=== PATIENT | male | born 1955 | race Caucasian/White ===

== ENCOUNTER 2016-10-19 02:23 | Emergency (ER) | payer OTHER ==
[2016-10-19 02:38] VITALS: BP 155/90; TEMP 97.4; BMI 30.4
--- NOTE | 2016-10-19 02:49 | ED.PDOC ---
General ED Provider: Dr. YOSSI BUTCHER Chief Complaint: Back Pain Stated Complaint: patient is a 60 year old male who has a history of chronic back pain followed by the [facility] in [facility]. States he is out of his medications ( oxyodone) for the past 2 days. States the pain is worse tonight and has not been gotten relief with tylenol or benadryl. Describes it as a sharp pain and unable to get comfortable standing, sitting, or lying. Denies injury. Time Seen by Physician: 02:46 Mode of Arrival: Walk-In Information Source: Patient Exam Limitations: No limitations Primary Care Provider: DESHAWN GARZA Nursing and Triage Documentation Reviewed and Agree: Yes Musculoskeletal Complaint Exam - Back Pain Complaint/Exam Mechanism of Injury: Reports: No known trauma Onset/Duration: chronic Symptoms Are: Still present Timing: Constant Initial Severity: Moderate Current Severity: Severe Location: Reports: Diffuse Character: Reports: Aching, Throbbing, Spasmodic Aggravating: Reports: None Alleviating: Reports: None Associated Signs and Symptoms: Denies: Swelling, Redness, Bruising, Fever, Weakness, Numbness, Tingling, Abdominal pain, Flank pain, Bladder incontinence, Bowel incontinence, Weight loss, Pain with weight bearing TAD Risk Factors: Reports: None AAA Risk Factors: Reports: None Cauda Equina Risk Factors: Reports: None Epidural Abcess Risk Factors: Denies: IV drug use, Skin abcess, Lower extremity numbness, Lower extremity weakness Related Surgical History: Reports: None Focal Tenderness: Yes (Lower back ) Paraspinal Muscle Tenderness: No Paraspinal Muscle Spasm: No Scoliosis: No Lordosis: No Kyphosis: No SLR Test: Right Negative, Left Negative Hip Motion Testing Pain: Right Negative, Left Negative Focal Weakness: Present: None Focal Sensory Loss: Present: None Gait: Present: Normal Back Picture: 1 - tenderness Differential Diagnoses: Strain, Sprain Review of Systems - Review Of Systems Constitutional: Reports: No symptoms Eyes: Reports: No symptoms Ears, Nose, Mouth, Throat: Reports: No symptoms Respiratory: Reports: No symptoms Cardiac: Reports: No symptoms GI: Reports: No symptoms Musculoskeletal: Reports: Back pain, Joint pain Neurological: Reports: Anxiety All Other Systems: Reviewed and Negative Past Medical History - Past Medical History Endocrine: Reports: Dyslipidemia Cardiovascular: Reports: Hypertension, CHF Respiratory: Reports: COPD Hematological: Reports: None Gastrointestinal: Reports: None Genitourinary: Reports: None Neuro/Psych: Reports: None Musculoskeletal: Reports: Arthritis, Back Pain Cancer: Reports: None Other Pertinent Past Medical History: Abdominal anerurism - Surgical History General Surgical History: Reports: Pacemaker - Family History Family History: Reports: None - Social History Smoking Status: Current every day smoker Hx Substance Use: No Alcohol Screening: None - Immunizations Tetanus Shot up to Date: Yes Physical Exam - Physical Exam Appearance: Ill-appearing Ill-appearing: Mild Pain Distress: Severe Eyes: VIOLA, EOMI, Conjunctiva clear ENT: Ears normal, Nose normal, Oropharynx normal Neck: Supple Respiratory: Airway patent, Breath sounds clear, Breath sounds equal, Respirations nonlabored Cardiovascular: RRR, Pulses normal, No rub, No murmur GI/: Soft, Nontender, No masses, Bowel sounds normal, No Organomegaly Musculoskeletal: Normal strength, ROM intact, No edema, No calf tenderness Skin: Warm, Dry, Normal color Neurological: Sensation intact, Motor intact, Reflexes intact, Cranial nerves intact, Alert, Oriented Psychiatric: Anxious Critical Care Note - Critical Care Note Total Time (mins): 0 Course - Course Orders, Labs, Meds: Orders Category Date Time Status Morphine Sulfate [Morphine 4 mg/ml Syringe] MEDS 10/19/16 03:04 Discontinued 4 mg IM ONCE STA Ondansetron HCl/Pf [Zofran 4 mg/2 ml] MEDS 10/19/16 03:04 Discontinued 4 mg IM ONCE STA CT ABD/PEL WO RENAL STONE PROT Stat RADS 10/19/16 02:59 Completed Medications Discontinued Medications Generic Name Dose Route Start Last Admin Trade Name Freq PRN Reason Stop Dose Admin Morphine Sulfate 4 mg 10/19/16 03:04 10/19/16 03:48 Morphine 4 Mg/Ml Syringe IM 10/19/16 03:05 4 mg ONCE STA Administration Ondansetron HCl 4 mg 10/19/16 03:04 10/19/16 03:47 Zofran 4 Mg/2 Ml IM 10/19/16 03:05 4 mg ONCE STA Administration Vital Signs: Temp Pulse Resp BP Pulse Ox 10/19/16 02:24 97.4 F L 66 18 155/90 H 96 Departure - Departure Time of Disposition: 04:08 Disposition: HOME SELF-CARE Discharge Problem: Backache, AAA (abdominal aortic aneurysm) without rupture Instructions: Chronic Back Pain (ED), Abdominal Aortic Aneurysm Repair (ED) Condition: Fair Pt referred to PMD for follow-up: Yes Additional Instructions: Follow up with Your Doctor for Medication Refill Stop smoking. Prescriptions: Oxycodone HCl/Acetaminophen [Oxycodon-Acetaminophen 7.5-325] 1 each PO TID PRN # 14 tablet PRN Reason: back pain Allergies/Adverse Reactions: Allergies codeine Adverse Reaction (Verified 10/19/16 02:33) Latex, Natural Rubber Adverse Reaction (Verified 10/19/16 02:33) polyethylene glycol [From Golytely] Adverse Reaction (Verified 10/19/16 02:33) polyethylene glycol 3350 [From Golytely] Adverse Reaction (Verified 10/19/16 02: 33) potassium chloride [From Golytely] Adverse Reaction (Verified 10/19/16 02:33) sodium [From Golytely] Adverse Reaction (Verified 10/19/16 02:33) sodium bicarbonate [From Golytely] Adverse Reaction (Verified 10/19/16 02:33) sodium chloride [From Golytely] Adverse Reaction (Verified 10/19/16 02:33) sodium sulfate [From Golytely] Adverse Reaction (Verified 10/19/16 02:33) Home Medications: Ambulatory Orders Albuterol Sulfate [Proair Hfa] 2 puff IH Q4H PRN 02/26/15 Docusate Sodium [Colace] 100 mg PO DAILY PRN 02/26/15 Fluticasone/Salmeterol [Advair 500-50 Diskus] 1 puff INH BID 02/26/15 Hydrochlorothiazide 25 mg PO DAILY 02/26/15 Losartan Potassium [Cozaar] 50 mg PO DAILY 02/26/15 Meloxicam 15 mg PO DAILY 02/26/15 Omeprazole [Prilosec] 40 mg PO DAILY 02/26/15 Pravastatin Sodium [Pravachol] 20 mg PO BEDTIME 02/26/15 Oxycodone HCl [Roxicodone] 15 mg PO Q6H PRN 10/19/16 Oxycodone HCl/Acetaminophen [Oxycodon-Acetaminophen 7.5-325] 1 each PO TID PRN # 14 tablet 10/19/16 Tiotropium Hewitt [Spiriva] 1 cap IH DAILY 10/19/16
[2016-10-19] MEDS ORDERED: MORPHINE 4 MG/ML SYRINGE IM STA (03:04)
[2016-10-19] MEDS ORDERED: ZOFRAN 4 MG/2 ML IM STA (03:04)
--- NOTE | 2016-10-19 03:38 | CT ---
EXAM: CT abdomen pelvis without intravenous contrast 10/19/2016. Sagittal and coronal reformatted images obtained HISTORY: Back pain. Abdominal aortic aneurysm COMPARISON: 10/28/2011. FINDINGS: Bibasilar atelectasis. The liver, gallbladder, adrenal glands and kidneys show no acute abnormality. The spleen and pancreas show no acute abnormality. There is no bowel obstruction. Normal appendix. Unremarkable urinary bladder. There is no free air or free fluid. No acute osseous abnormality. Multilevel chronic degenerative disc disease. Aneurysmal dilatation of the infrarenal abdominal aorta. On image 90 this measures approximately 3. 7 x 3.8 cm diameter. This has increased as compared to the 2012 examination. This previously ericka ured approximately 3.2 x 3.2 cm diameter. IMPRESSION: 1. No urinary or bowel obstruction and normal appendix. 2. Infrarenal abdominal aortic aneurysm. This has increased in size as compared to the 2012 exam. 3. Limited examination due to lack of intravenous contrast.
== END 2016-10-19 04:20 | disposition home or self-care (01) ==
LOC: ED 02:23
DX: M54.5 Low back pain (principal); G89.29 Other chronic pain; I71.4 Abdominal aortic aneurysm, without rupture; I10 Essential (primary) hypertension; F17.210 Nicotine dependence, cigarettes, uncomplicated; Z79.899 Other long term (current) drug therapy
CPT/HCPCS: 74176; 96372; 99283

== ENCOUNTER 2016-11-17 10:26 | Outpatient (CLI) ==
--- NOTE | 2016-11-17 11:25 | DI ---
EXAM: Five views of the lumbar spine HISTORY: Lower back pain with history of arthritis. COMPARISON: CT abdomen pelvis 10/19/2016 FINDINGS: There is no acute compression fracture. There is multilevel anterior disc osteophytes. T here is significant narrowing of the lumbosacral junction which is unchanged since prior CT. There is scattered facet arthropathy present with mild narrowing of the neural foramen at L5-S1. No ident ifiable pars defects are present. Soft tissues are unremarkable. IMPRESSION: 1. No acute compression fracture or subluxation. 2. Multilevel degenerative disease of the spine with narrowing and facet arthropathy at L5-S1 contr ibuting to mild neural foraminal narrowing.
== END 2016-11-17 10:27 | disposition home or self-care (01) ==
LOC: RAD 10:26
PROVIDERS: ATTEND Physician Assistant
DX: M54.5 Low back pain (principal)

== ENCOUNTER 2016-12-31 09:28 | Outpatient (CLI) ==
--- NOTE | 2016-12-31 09:55 | DI ---
Exam: Right hip two views History: Primary osteoarthritis Findings: AP and frog lateral views of the right hip were obtained and compared to the prior study of 01/07/2016 and demonstrates mild sclerotic changes of the superior lateral right acetabular rim. No evidence of fracture, dislocation nor significant hip joint space narrowing is identified. No e vidence of erosive changes nor avascular necrosis. IMPRESSION: Mild acetabular sclerosis of the superior lateral acetabular rim. Overall no significa nt change in appearance as compared to 01/07/2016.
== END 2016-12-31 09:29 | disposition home or self-care (01) ==
LOC: RAD 09:28
PROVIDERS: ATTEND Pain Medicine Interventional Pain Medicine
DX: M16.11 Unilateral primary osteoarthritis, right hip (principal)

== ENCOUNTER 2017-02-13 14:00 | Outpatient (CLI) | payer OTHER | END 2017-02-13 14:01 | disposition home or self-care (01) | LOC: RAD 14:00 | PROVIDERS: ATTEND Orthopaedic Surgery | DX: M54.5 Low back pain (principal) ==

== ENCOUNTER 2017-07-06 10:28 | Outpatient (CLI) ==
--- NOTE | 2017-07-06 11:01 | DI ---
EXAM: Radiographs, lumbar spine HISTORY: Low back pain. Previous lumbar fusion. COMPARISON: 02/23/2017. TECHNIQUE: Three views. FINDINGS: Posterior lumbar interbody fusion changes seen at L5-S1. Interspinous spacing device seen at L4-5. Hardware appears intact. Alignment is normal on the lateral view. There is moderate right convex curvature centered near L3. Vertebral body heights are maintained. There is mild diffuse los s of disc height throughout the lumbar spine, greatest at L4-5. Multilevel endplate osteophyte forma tion and facet arthropathy again noted, unchanged from prior study. No fracture or subluxation ident ified. Sacral arcuate lines are intact. Soft tissues are unremarkable IMPRESSION: 1. Posterior lumbar interbody fusion changes at L5-S1 and interspinous spacer placement at L4-5. 2. Stable degenerative changes.
== END 2017-07-06 10:29 | disposition home or self-care (01) ==
LOC: RAD 10:28
PROVIDERS: ATTEND Orthopaedic Surgery
DX: M54.5 Low back pain (principal); Z98.1 Arthrodesis status

== ENCOUNTER 2017-08-08 10:39 | Outpatient (RCR) ==
--- NOTE | 2017-08-08 10:54 | RS.OPPTDC ---
Date of Discharge: 08/08/17 Date of Evaluation: 07/24/17 Number of Visits: 4 Treatment Diagnosis: LBP s/p TLIF and Coflex Current Level of Function: Patient denies any pain with HEP or extra activities such as going to [employer] and helping his daughter in their pasture with their horses. He says he is working on his stationary bike x 10-15 mins everyday. Pain Assessment - Pain Description Pain Location: tender and sore along incision due to bumping into handle on stationary bike (home) Functional Outcome Measure Oswestry LBP: 6 - G Codes & Severity Modifier G Codes & Modifier: Mobility D/c: CI. Goal: CI Source of G Code score: Through Oswestry, reports, and presentation Gait - Gait Pattern General Gait Pattern Observation: No Deviations/Normal General Range of Motion: Lumbar ROM increased to bilateral side bending hand to just past lateral knee joint. Increased HS length bilaterally SLR to ~50 degrees. Muscle Strength: 5/5 MMT for bilateral hips/quads/trunk 4+ Interventions - Exercise/Activities/Manual Therapy Exercises/Activities: Patient receives passive stretching for bilateral LE including: HS, piriformis, SKTC, and figure 4. Lower trunk rotation all x 4. Patient continues with isometric hip flexion (hooklying alternating), SLR isometric hip add/abd, QS, Ball squeezes, Bridging, and lower ab lift in hooklying. All x 10 reps. Blue latex free DF, Hooklying hip abd with blue tband, sitting (scap retraction and bilateral shoulder ER) with blue latex free tband 2x10. Measurements taken, Oswestry assessed, reviewed HEP. Total minutes of Exercise: 38 Manual Therapy: n/a HOME EXERCISE PROGRAM: pt given written HEP with hamstring stretch, hip add pillow squeeze, resisted hip flex, pelvic tilts, forward lunges, added hooklying hip abd with green latex free tband (07/27/17) - Objective Findings Observations,measurements,etc.: 6 or 12% impairment for Oswestry - Charges Total Direct Minutes: 38 Total Treatment Time: 38 Procedures billed for this date of service:: ex3 Assessment Assessment: Patient admits no pain at this point and is able to resume all ADLs , household and outdoor tasks without any difficulty. He only has limitation related to abdominal aneurysm. Patient Education: Education of diagnosis, Body/Joint mechanics, Home Exercise Program, Home Safety, Activity Modification, Education of Plan of Care Rehab Potential: Good Short Term Goals Goal #1: pt demonstrate improved hamstring flexibility Goal to be met by: 07/28/17 Progress towards Goal:: Met Goal #2: pt with no reports of pain with HEP Goal to be met by: 07/28/17 Progress towards Goal:: Met Penitentiary Goals Goal #1: pt independent with HEP to maintain functional gains after dc Goal to be met by: 08/11/17 Progress towards goal: Met Goal #2: pt with improved lumbar ROM:reach to knee joint line with flex/side bending Goal to be met by: 08/11/17 Progress towards goal: Met Goal #3: pt hip flex 5/5 with no pain reported. Goal to be met by: 08/11/17 Progress towards goal: Met Plan Reason for Discharge:: All Goals Met
== END 2017-08-31 ==
PROVIDERS: ATTEND Orthopaedic Surgery
DX: M54.5 Low back pain (principal); Z98.890 Other specified postprocedural states

== ENCOUNTER 2017-08-17 09:20 | Outpatient (CLI) ==
--- NOTE | 2017-08-17 10:14 | DI ---
EXAM: Three views of the lumbar spine HISTORY: Lower back pain with history of fusion. COMPARISON: Lumbar spine x-ray 07/06/2017 FINDINGS: There is mild rightward curvature of the lumbar spine. There is stable posterior fusion leo rdware at L5-S1. There is no acute compression fracture. There are scattered levels of anterior lis thesis and facet arthropathy. There is no lytic or blastic lesion. Soft tissues are unremarkable. IMPRESSION: 1. No acute compression fracture or subluxation of the lumbosacral spine. 2. Postsurgical changes and fusion hardware at L5-S1 without evidence of hardware fracture or loosen ing. 3. Multilevel degenerative disease of the lumbosacral spine.
== END 2017-08-17 09:21 | disposition home or self-care (01) ==
LOC: RAD 09:20
PROVIDERS: ATTEND Orthopaedic Surgery
DX: M54.5 Low back pain (principal); Z98.1 Arthrodesis status

== ENCOUNTER 2017-12-08 10:23 | Outpatient (CLI) ==
--- NOTE | 2017-12-08 12:23 | DI ---
EXAM: Three views of the lumbar spine HISTORY: Lower back pain. COMPARISON: Lumbar spine x-ray 08/17/2017 FINDINGS: There has been posterior surgical change in the lumbosacral junction which is unchanged fro m prior examination. There is no evidence of hardware fracture or loosening. There is mild rightwar d curvature of the spine. There is multilevel disc space narrowing and anterior osteophyte formation and facet arthropathy. The soft tissues are unremarkable. IMPRESSION: 1. No acute compression fracture or subluxation. 2. Stable changes at L5-S1 without evidence of hardware fracture or loosening. 3. Unchanged moderate multilevel degenerative disease of the lumbosacral spine.
== END 2017-12-08 10:24 | disposition home or self-care (01) ==
LOC: RAD 10:23
PROVIDERS: ATTEND Orthopaedic Surgery
DX: M54.5 Low back pain (principal)

== ENCOUNTER 2018-04-09 13:25 | Outpatient (CLI) ==
--- NOTE | 2018-04-09 14:32 | US ---
EXAM: Left lower extremity venous Doppler duplex study HISTORY: Concern for DVT with left lower extremity swelling. COMPARISON: None TECHNIQUE: Sonographic and Doppler evaluation of the left lower extremity vessels from the common fe moral through the anterior tibial veins were obtained. Color Doppler and wave spectral analysis were performed. Augmentation and compression techniques were also performed. FINDINGS: There is spontaneous Doppler flow seen in the left lower extremity veins from the common f emoral through the anterior tibial veins. There is normal compression and augmentation throughout th e lower extremity veins. There is normal color Doppler and wave spectral analysis. There is no visu alized reflux. Sonographic appearance of the soft tissues are unremarkable. IMPRESSION: No left lower extremity thrombus
== END 2018-04-09 13:26 | disposition home or self-care (01) ==
LOC: RAD 13:25
PROVIDERS: ATTEND Physician Assistant
DX: R60.0 Localized edema (principal)

== ENCOUNTER 2018-06-22 12:08 | Outpatient (CLI) ==
--- NOTE | 2018-06-22 14:15 | DI ---
EXAM: Two views of the chest. History: Chest pain and edema. Comparison: Chest radiograph 05/18/2018 Findings: Heart size is normal. Pacer device. No focal consolidation. No appreciable pleural flui d and no pneumothorax. No acute osseous abnormalities. Impression: No acute cardiopulmonary process
--- NOTE | 2018-06-22 14:30 | DI ---
EXAM: Four views of the left knee. History: Left knee pain. Comparison: Left knee radiograph 08/28/2014 Findings: No acute fracture or dislocation. Joint spaces are preserved. No change in the well hardy icated ossific density superior to the patella consistent with old trauma. Impression: No acute osseous abnormality. No change compared to the prior study
== END 2018-06-22 12:09 | disposition home or self-care (01) ==
LOC: CAR 12:08
PROVIDERS: ATTEND Physician Assistant
DX: R60.0 Localized edema (principal); M25.562 Pain in left knee

== ENCOUNTER 2018-07-02 08:16 | Outpatient (CLI) | payer OTHER ==
--- NOTE | 2018-07-02 08:55 | US ---
EXAM: Left lower extremity venous Doppler duplex HISTORY: Concern for DVT with left lower extremity tenderness and swelling. COMPARISON: Left lower extremity Doppler 04/09/2018 TECHNIQUE: Sonographic and Doppler evaluation of the left lower extremity vessels from the common fe moral through the anterior tibial veins were obtained. Color Doppler wave spectral analysis was perfo rmed. Augmentation and compression techniques were also performed. FINDINGS: There is spontaneous Doppler flow seen in the left lower extremity veins from the common f emoral through the anterior tibial veins. Left lower extremity color Doppler wave spectral analysis is normal. There is normal compression and augmentation throughout the lower extremity veins. Sonogr aphic appearance of the soft tissues demonstrate no acute abnormality. IMPRESSION: No left lower extremity thrombus.
== END 2018-07-02 08:17 | disposition home or self-care (01) ==
LOC: RAD 08:16
PROVIDERS: ATTEND Physician Assistant
DX: R60.0 Localized edema (principal)
CPT/HCPCS: 93005; 93010

== ENCOUNTER 2018-07-09 13:38 | Outpatient (CLI) | END 2018-07-09 13:39 | disposition home or self-care (01) | LOC: CAR 13:38 | PROVIDERS: ATTEND Psychiatry & Neurology Sleep Medicine | DX: G47.33 Obstructive sleep apnea (adult) (pediatric) (principal) ==

== ENCOUNTER 2018-08-06 09:51 | Outpatient (CLI) ==
--- NOTE | 2018-08-06 10:51 | CT ---
EXAM: CT of the head without contrast History: Memory impairment, headache and dizziness Comparison: Head CT 05/08/2015 Technique: Multiplanar CT images through the head were obtained without the administration of IV con trast Findings: The visualized paranasal sinuses are clear in general. No change in the chronic trace rig ht mastoid effusion. No acute osseous abnormalities. Intracranially the ventricular and cisternal spaces are normal in size, shape and configuration for a patient of this age. No dominant mass or midline shift. No hydrocephalous. No acute intracranial hemorrhage or abnormal extraaxial fluid collections. Impression: No acute intracranial process
== END 2018-08-06 09:52 | disposition home or self-care (01) ==
LOC: RAD 09:51
PROVIDERS: ATTEND Physician Assistant
DX: R41.3 Other amnesia (principal)

== ENCOUNTER 2019-02-04 12:36 | Outpatient (CLI) | payer OTHER ==
[2019-02-04] MEDS ORDERED: ALBUTEROL 0.083% NEB NEB STA (12:58)
== END 2019-02-04 12:37 | disposition home or self-care (01) ==
LOC: CAR 12:36
PROVIDERS: ATTEND Nurse Practitioner Family
DX: J44.9 Chronic obstructive pulmonary disease, unspecified (principal)